=== PATIENT | female | born 1970 | race Caucasian/White ===

== ENCOUNTER 2017-07-13 12:24 | Inpatient (IN) | payer MEDICAID, OTHER ==
[~2017-07-13] VITALS: Ht 259.1 cm; Wt 44.9 kg
[~2017-07-13 12:24] MED LIST: CALC667C4 PO; FERR-63 PO; FURO40TA5 PO; Fluoxetine Hcl PO; LEVVL SUBCUT; LIP40 PO; OMEP20TA2 PO; SODI650T PO
[2017-07-13] MEDS ORDERED: ONDANSETRON HCL 4MG/2ML VIAL IV STA (14:32)
[2017-07-13] MEDS ORDERED: MORPHINE SULFATE 4 MG/ML CPJ (NOT FOR IM USE) IV STA (14:32)
[2017-07-13 15:05] LABS: BASOPHILS % 0.4 % (0.0-2.0); EOSINOPHILS % 0.1 % (0.0-5.0); HEMATOCRIT. 33.3 % (36.0-48.0); HEMOGLOBIN. 10.8 g/dL (12.0-16.0); LYMPHOCYTES % 7.3 % (20.0-50.0); MEAN CORPUSCULAR VOLUME 95.9 fL (81.0-99.0); MEAN PLATELET VOLUME 8.7 fl (7.4-10.4); NEUTROPHILS % 85.2 % (40.0-76.0); PLATELET 251 x1000/uL (130-400); RED BLOOD CELL COUNT 3.47 mill/uL (4.2-5.4)
[2017-07-13 15:12] LABS: INR 1.1; PARTIAL THROMBOPLASTIN TIME 31.6 sec (23.4-31.0); PROTHROMBIN TIME 11.4 sec (9.4-11.6)
[2017-07-13 15:21] LABS: CARBON DIOXIDE 21 mEq/L (21-32); CHLORIDE 102 mEq/L (98-107); TROPONIN I < 0.02 ng/mL (0.00-0.04)
[2017-07-13] MEDS ORDERED: LORAZEPAM 2MG/ML CPJ IV ONE (17:30)
[2017-07-13] MEDS ORDERED: HYDROCODONE/ACETAMINOPHEN 5/325MG TABLET PO PRN (18:15)
[2017-07-13] MEDS ORDERED: ACETAMINOPHEN 325MG TABLET PO PRN (18:15)
[2017-07-13] MEDS ORDERED: IPRATROPIUM/ALBUTEROL 0.5-3(2.5)MG/3ML NEB INH PRN (18:15)
[2017-07-13] MEDS ORDERED: CLONIDINE 0.1MG TABLET PO PRN (18:15)
[2017-07-13] MEDS ORDERED: ONDANSETRON HCL 4MG/2ML VIAL IV PRN (18:15)
[2017-07-13] MEDS ORDERED: MAGNESIUM/ALUMINUM HYDROXIDE/SIMETHICONE 30ML UDC PO PRN (18:15)
[2017-07-13] MEDS ORDERED: DOCUSATE SODIUM 100MG CAPSULE PO PRN (18:15)
[2017-07-13] MEDS ORDERED: SODIUM POLYSTYRENE SULFONATE 15 G/60 ML BOT PO NR (19:04)
[2017-07-13] MEDS ORDERED: DEXTROSE 50% WATER 50ML SYRINGE IV PRN ×2 (21:15→22:00)
[2017-07-13] MEDS: BLOOD SUGAR DIAGNOSTIC STRIP TEST SCH (21:20)
[2017-07-13] MEDS: MORPHINE SULFATE 4 MG/ML CPJ (NOT FOR IM USE) IV PRN (21:50)
[2017-07-13 23:37] LABS: CREATINE KINASE 52 IU/L (26-192); CREATINE KINASE MB FRACTION 2.2 ng/mL (0.5-3.6)
[2017-07-13 23:43] LABS: TROPONIN I < 0.02 ng/mL (0.00-0.04)
[2017-07-14] MEDS: MORPHINE SULFATE 4 MG/ML CPJ (NOT FOR IM USE) IV PRN ×3 (02:25→10:31)
[2017-07-14] MEDS: BLOOD SUGAR DIAGNOSTIC STRIP TEST SCH ×4 (06:06→21:34)
[2017-07-14] MEDS ORDERED: BLOOD SUGAR DIAGNOSTIC STRIP TEST SCH (07:40)
[2017-07-14 08:03] LABS: BASOPHILS % 0.6 % (0.0-2.0); EOSINOPHILS % 0.8 % (0.0-5.0); HEMATOCRIT. 31.2 % (36.0-48.0); HEMOGLOBIN. 10.1 g/dL (12.0-16.0); LYMPHOCYTES % 9.9 % (20.0-50.0); MEAN CORPUSCULAR HEMOGLOBIN 31.1 pg (28.0-32.0); MEAN CORPUSCULAR VOLUME 95.6 fL (81.0-99.0); MEAN PLATELET VOLUME 9.1 fl (7.4-10.4); MONOCYTES % 9.5 % (2.0-8.0); NEUTROPHILS % 79.2 % (40.0-76.0); PLATELET 264 x1000/uL (130-400); RED BLOOD CELL COUNT 3.27 mill/uL (4.2-5.4); RED CELL DISTRIBUTION WIDTH 15.3 % (11.6-14.6)
[2017-07-14] MEDS: INSULIN LISPRO 100 UNITS/ML SUBCUT SCH ×4 (08:26→21:00)
[2017-07-14 09:02] LABS: CREATINE KINASE 48 IU/L (26-192); CREATINE KINASE MB FRACTION 1.6 ng/mL (0.5-3.6); HDL CHOLESTEROL 43 mg/dL (40-59); LDL CHOLESTEROL 56 mg/dL (5-100); TROPONIN I < 0.02 ng/mL (0.00-0.04)
[2017-07-14] MEDS ORDERED: MORPHINE SULFATE 4 MG/ML CPJ (NOT FOR IM USE) IV PRN (14:49)
[2017-07-14] MEDS ORDERED: LISINOPRIL 2.5MG TABLET PO SCH (15:45)
[2017-07-14] MEDS ORDERED: CALCIUM ACETATE 667MG CAPSULE PO SCH (18:10)
[2017-07-14 20:48] VITALS: BP 139/79
[2017-07-14] MEDS ORDERED: CARVEDILOL 3.125 MG TABLET PO SCH (21:00)
[2017-07-14] MEDS ORDERED: ATORVASTATIN CALCIUM 40MG TABLET PO SCH (21:00)
[2017-07-15] MEDS ORDERED: OMEPRAZOLE 20MG CAPSULE EXTENDED RELEASE PO SCH (07:40)
[2017-07-15] MEDS ORDERED: FLUOXETINE HCL 20MG CAPSULE PO SCH (09:00)
[2017-07-15] MEDS ORDERED: FERROUS SULFATE 325MG TABLET PO SCH (09:00)
[2017-07-15] MEDS ORDERED: FUROSEMIDE 40MG TABLET PO SCH (09:00)
[2017-11-11] MEDS ORDERED: AMLO5TAB88 PO (13:03)
[2017-11-11] MEDS ORDERED: CITA10TA9 PO (13:03)
[2017-11-11] MEDS ORDERED: DOCU-138 PO (13:03)
[2017-11-11] MEDS ORDERED: HYOS0.122 PO (13:03)
[2017-11-11] MEDS ORDERED: FURO40TA5 PO (13:03)
[2017-11-12] MEDS ORDERED: NIFE60TA64 PO ×2 (20:20→20:21)
[2017-11-12] MEDS ORDERED: [UNRECOGNIZED DRUG - MIXTURE] PO (20:23)
[2017-11-12] MEDS ORDERED: DOCU100C21 PO (20:24)
[2017-11-12] MEDS ORDERED: CARV6.2548 PO (20:25)
== END 2017-07-14 23:08 | disposition short-term general hospital (02) | DRG 203 ==
LOC: ER 13:00 → 7WST 17:37 → EDBEDREQTM 17:38 → EDBEDREQ 17:38 → ENRESERV 18:13
PROVIDERS: ADMIT Internal Medicine; ATTEND Internal Medicine
DX: M94.0 Chondrocostal junction syndrome [Tietze] (principal); R64 Cachexia; I42.9 Cardiomyopathy, unspecified; N18.6 End stage renal disease; E46 Unspecified protein-calorie malnutrition; I13.11 Hypertensive heart and chronic kidney disease without heart failure, with stage 5 chronic kidney disease, or end stage renal disease; E11.22 Type 2 diabetes mellitus with diabetic chronic kidney disease; G20 Parkinson's disease; D63.1 Anemia in chronic kidney disease; E83.39 Other disorders of phosphorus metabolism; E11.319 Type 2 diabetes mellitus with unspecified diabetic retinopathy without macular edema; E78.5 Hyperlipidemia, unspecified; M21.961 Unspecified acquired deformity of right lower leg; F32.9 Major depressive disorder, single episode, unspecified; G89.4 Chronic pain syndrome; H54.42 Blindness, left eye, normal vision right eye; M21.371 Foot drop, right foot; R29.6 Repeated falls; R62.7 Adult failure to thrive; Z79.4 Long term (current) use of insulin; Z79.899 Other long term (current) drug therapy; Z95.810 Presence of automatic (implantable) cardiac defibrillator; Z99.2 Dependence on renal dialysis; Z68.1 Body mass index [BMI] 19.9 or less, adult
CPT/HCPCS: 36415; 71010; 80048; 80053; 80061; 82550; 82553; 82962; 83735; 84443; 84484; 85025; 85610; 85730; 87040; 93005; 93970; 96374; 96375; 99285; A6261; J1815; J2060; J2270; J2405

== ENCOUNTER 2017-09-09 20:31 | Inpatient (IN) | payer OTHER ==
[~2017-09-09] VITALS: Ht 157.5 cm; Wt 45.4 kg
[2017-09-09] MEDS ORDERED: MORPHINE SULFATE 4 MG/ML CPJ (NOT FOR IM USE) IV STA (20:49)
[2017-09-09] MEDS ORDERED: ASPIRIN 81MG TABLET PO STA (20:49)
[2017-09-09] MEDS ORDERED: ONDANSETRON HCL 4MG/2ML VIAL IV STA (20:49)
[2017-09-09] MEDS ORDERED: LORAZEPAM 2MG/ML CPJ IV ONE (21:00)
[2017-09-09 21:18] LABS: INR 1.2; PARTIAL THROMBOPLASTIN TIME 27.1 sec (23.4-31.0)
[2017-09-09 21:20] LABS: BASOPHILS % 0.6 % (0.0-2.0); EOSINOPHILS % 0.9 % (0.0-5.0); HEMATOCRIT. 31.8 % (36.0-48.0); HEMOGLOBIN. 10.5 g/dL (12.0-16.0); LYMPHOCYTES % 12.2 % (20.0-50.0); MEAN CORPUSCULAR HEMOGLOBIN 32.1 pg (28.0-32.0); MEAN PLATELET VOLUME 8.3 fl (7.4-10.4); MONOCYTES % 6.5 % (2.0-8.0); NEUTROPHILS % 79.8 % (40.0-76.0); PLATELET 199 x1000/uL (130-400); RED BLOOD CELL COUNT 3.28 mill/uL (4.2-5.4); RED CELL DISTRIBUTION WIDTH 17.1 % (11.6-14.6)
[2017-09-09 21:34] LABS: CARBON DIOXIDE 28 mEq/L (21-32); CHLORIDE 98 mEq/L (98-107); TROPONIN I < 0.02 ng/mL (0.00-0.04)
[2017-09-10 04:29] VITALS: BP 157/94
[2017-09-10] MEDS ORDERED: OMEPRAZOLE 20MG CAPSULE EXTENDED RELEASE PO SCH (07:20)
[2017-09-10] MEDS ORDERED: DEXTROSE 50% WATER 50ML SYRINGE IV PRN (08:00)
[2017-09-10 08:28] VITALS: BP 146/79
[2017-09-10] MEDS: CALCIUM ACETATE 667MG CAPSULE PO SCH ×2 (08:57→13:10)
[2017-09-10] MEDS: SODIUM BICARBONATE 650 MG TABLET PO SCH ×2 (08:58→13:09)
[2017-09-10] MEDS ORDERED: ATORVASTATIN CALCIUM 40MG TABLET PO SCH ×2 (09:00→21:00)
[2017-09-10] MEDS ORDERED: MEDICATION NOT ON FORMULARY EA (Omeprazole 20 MG) PO SCH (09:00)
[2017-09-10] MEDS ORDERED: CALCIUM ACETATE 667MG CAPSULE PO SCH (09:00)
[2017-09-10] MEDS ORDERED: FUROSEMIDE 40MG TABLET PO SCH (09:00)
[2017-09-10] MEDS: INSULIN LISPRO 100 UNITS/ML SUBCUT SCH ×2 (09:00→13:09)
[2017-09-10] MEDS ORDERED: FERROUS SULFATE 325MG TABLET PO SCH ×2 (09:00)
[2017-09-10] MEDS ORDERED: SODIUM BICARBONATE 650 MG TABLET PO SCH (09:00)
[2017-09-10] MEDS ORDERED: FLUOXETINE HCL 20MG CAPSULE PO SCH ×2 (09:00)
[2017-09-10] MEDS ORDERED: FLUOXETINE HCL PO SCH (09:00)
[2017-09-10 10:00] LABS: BASOPHILS % 0.7 % (0.0-2.0); EOSINOPHILS % 1.7 % (0.0-5.0); HEMATOCRIT. 32.9 % (36.0-48.0); HEMOGLOBIN. 10.9 g/dL (12.0-16.0); LYMPHOCYTES % 20.5 % (20.0-50.0); MEAN CORPUSCULAR HEMOGLOBIN 32.6 pg (28.0-32.0); MEAN CORPUSCULAR VOLUME 97.9 fL (81.0-99.0); MEAN PLATELET VOLUME 8.5 fl (7.4-10.4); MONOCYTES % 7.2 % (2.0-8.0); NEUTROPHILS % 69.9 % (40.0-76.0); PLATELET 180 x1000/uL (130-400); RED BLOOD CELL COUNT 3.36 mill/uL (4.2-5.4); RED CELL DISTRIBUTION WIDTH 17.6 % (11.6-14.6)
[2017-09-10] MEDS ORDERED: HYDROCODONE/ACETAMINOPHEN 5/325MG TABLET PO PRN (10:00)
[2017-09-10 10:23] LABS: CARBON DIOXIDE 25 mEq/L (21-32); CHLORIDE 99 mEq/L (98-107); CREATINE KINASE 48 IU/L (26-192); CREATINE KINASE MB FRACTION 1.6 ng/mL (0.5-3.6); HDL CHOLESTEROL 44 mg/dL (40-59); LDL CHOLESTEROL 45 mg/dL (5-100); TROPONIN I < 0.02 ng/mL (0.00-0.04)
[2017-09-10] MEDS ORDERED: MORPHINE SULFATE 2 MG/ML CPJ (NOT FOR IM USE) IV PRN (10:30)
[2017-09-10 12:00] VITALS: BP 148/81
[2017-09-10] MEDS ORDERED: BLOOD SUGAR DIAGNOSTIC STRIP TEST SCH (12:20)
[2017-09-10] MEDS ORDERED: POTASSIUM CHLORIDE 20MEQ TABLET SR PO SCH (12:30)
[2017-09-10 16:30] VITALS: BP 131/80
[2017-09-10] MEDS ORDERED: INSULIN DETEMIR UD 100 UNITS/ML SYR SUBCUT SCH ×2 (22:00)
== END 2017-09-10 17:50 | disposition short-term general hospital (02) | DRG 198 ==
LOC: ER 20:31 → EDBEDREQ 23:53 → ENRESERV 09-10 01:07 → 6WST 09-10 03:46
PROVIDERS: ADMIT Internal Medicine; ATTEND Internal Medicine
PROC: 5A1D70Z Performance of Urinary Filtration, Intermittent, Less than 6 Hours Per Day (ICD-10-PCS; principal; 2017-09-10)
DX: I24.9 Acute ischemic heart disease, unspecified (principal); E11.52 Type 2 diabetes mellitus with diabetic peripheral angiopathy with gangrene; N18.6 End stage renal disease; E46 Unspecified protein-calorie malnutrition; G20 Parkinson's disease; E11.21 Type 2 diabetes mellitus with diabetic nephropathy; S52.91XA Unspecified fracture of right forearm, initial encounter for closed fracture; D63.1 Anemia in chronic kidney disease; R07.89 Other chest pain; I13.11 Hypertensive heart and chronic kidney disease without heart failure, with stage 5 chronic kidney disease, or end stage renal disease; E11.22 Type 2 diabetes mellitus with diabetic chronic kidney disease; E11.319 Type 2 diabetes mellitus with unspecified diabetic retinopathy without macular edema; E78.5 Hyperlipidemia, unspecified; E83.39 Other disorders of phosphorus metabolism; E87.6 Hypokalemia; E87.70 Fluid overload, unspecified; F32.9 Major depressive disorder, single episode, unspecified; H54.62 Unqualified visual loss, left eye, normal vision right eye; G89.29 Other chronic pain; R29.6 Repeated falls; R62.7 Adult failure to thrive; Z79.4 Long term (current) use of insulin; Z79.899 Other long term (current) drug therapy; Z95.810 Presence of automatic (implantable) cardiac defibrillator; Z99.2 Dependence on renal dialysis; Z68.1 Body mass index [BMI] 19.9 or less, adult; Z89.431 Acquired absence of right foot
CPT/HCPCS: 36415; 71010; 73130; 80048; 80053; 80061; 82550; 82553; 82962; 83690; 83735; 84484; 85025; 85610; 85730; 93005; 96374; 96375; 99285; J1815; J2060; J2270; J2405

== ENCOUNTER 2017-09-16 07:12 | Inpatient (IN) | payer OTHER ==
[~2017-09-16] VITALS: Ht 182.9 cm; Wt 45.4 kg
[2017-09-16] MEDS ORDERED: MORPHINE SULFATE 4 MG/ML CPJ (NOT FOR IM USE) IV STA (07:29)
[2017-09-16] MEDS ORDERED: MORPHINE SULFATE 10 MG/ML CPJ IV NR (07:45)
[2017-09-16 07:47] LABS: BASOPHILS % 1.1 % (0.0-2.0); EOSINOPHILS % 0.7 % (0.0-5.0); HEMATOCRIT. 35.5 % (36.0-48.0); HEMOGLOBIN. 11.5 g/dL (12.0-16.0); LYMPHOCYTES % 22.3 % (20.0-50.0); MEAN CORPUSCULAR HEMOGLOBIN 32.1 pg (28.0-32.0); MEAN CORPUSCULAR VOLUME 98.9 fL (81.0-99.0); MEAN PLATELET VOLUME 9.6 fl (7.4-10.4); MONOCYTES % 9.1 % (2.0-8.0); NEUTROPHILS % 66.8 % (40.0-76.0); PLATELET 71 x1000/uL (130-400); RED BLOOD CELL COUNT 3.59 mill/uL (4.2-5.4); RED CELL DISTRIBUTION WIDTH 17.1 % (11.6-14.6)
[2017-09-16 07:51] LABS: CHLORIDE 102 mEq/L (98-107)
[2017-09-16 07:52] LABS: INR 1.2; PROTHROMBIN TIME 12.7 sec (9.4-11.6)
[2017-09-16 08:00] LABS: CARBON DIOXIDE 28 mEq/L (21-32)
[2017-09-16 08:02] LABS: TROPONIN I 0.04 ng/mL (0.00-0.04)
[2017-09-16 12:55] VITALS: BP 129/70
[2017-09-16] MEDS: MORPHINE SULFATE 10 MG/ML CPJ IV PRN ×2 (14:32→20:25)
[2017-09-16] MEDS ORDERED: DEXTROSE 50% WATER 50ML SYRINGE IV PRN (14:45)
[2017-09-16] MEDS ORDERED: SODIUM POLYSTYRENE SULFONATE 15 G/60 ML BOT PO NR (15:15)
[2017-09-16 15:28] LABS: CREATINE KINASE MB FRACTION 1.5 ng/mL (0.5-3.6)
[2017-09-16 16:00] VITALS: BP 122/71
[2017-09-16 16:35] LABS: EOSINOPHILS % 1.2 % (0.0-5.0); HEMATOCRIT. 33.1 % (36.0-48.0); HEMOGLOBIN. 10.9 g/dL (12.0-16.0); LYMPHOCYTES % 32.8 % (20.0-50.0); MEAN CORPUSCULAR HEMOGLOBIN 32.6 pg (28.0-32.0); MEAN CORPUSCULAR VOLUME 98.8 fL (81.0-99.0); MEAN PLATELET VOLUME 9.7 fl (7.4-10.4); MONOCYTES % 10.5 % (2.0-8.0); NEUTROPHILS % 54.5 % (40.0-76.0); PLATELET 66 x1000/uL (130-400); RED BLOOD CELL COUNT 3.35 mill/uL (4.2-5.4); RED CELL DISTRIBUTION WIDTH 16.8 % (11.6-14.6)
[2017-09-16] MEDS: NITROGLYCERIN OINT 1GM/INCH UDPKT TD SCH (17:36)
[2017-09-16] MEDS: FUROSEMIDE 40MG/4ML VIAL IVP SCH (17:37)
[2017-09-16] MEDS: FERROUS SULFATE 325MG TABLET PO SCH (17:37)
[2017-09-16] MEDS: INSULIN LISPRO 100 UNITS/ML SUBCUT SCH ×2 (17:40→20:06)
[2017-09-16] MEDS: BLOOD SUGAR DIAGNOSTIC STRIP TEST SCH ×2 (18:08→20:06)
[2017-09-16 20:00] VITALS: BP 135/88
[2017-09-16] MEDS: CARVEDILOL 3.125 MG TABLET PO SCH (20:22)
[2017-09-16] MEDS ORDERED: ATORVASTATIN CALCIUM 40MG TABLET PO SCH (21:00)
[2017-09-16] MEDS ORDERED: MIRTAZAPINE 15MG TABLET PO SCH (21:00)
[2017-09-17] VITALS (7 sets, daily range): BP systolic 119–160; BP diastolic 74–96
[2017-09-17 00:10] LABS: CREATINE KINASE MB FRACTION 1.2 ng/mL (0.5-3.6)
[2017-09-17] MEDS: NITROGLYCERIN OINT 1GM/INCH UDPKT TD SCH ×4 (00:15→17:24)
[2017-09-17] MEDS: MORPHINE SULFATE 10 MG/ML CPJ IV PRN ×3 (04:32→17:23)
[2017-09-17] MEDS: BLOOD SUGAR DIAGNOSTIC STRIP TEST SCH ×3 (06:56→17:21)
[2017-09-17] MEDS: INSULIN LISPRO 100 UNITS/ML SUBCUT SCH ×3 (06:56→17:21)
[2017-09-17 08:11] LABS: BASOPHILS % 1.1 % (0.0-2.0); EOSINOPHILS % 2.2 % (0.0-5.0); HEMATOCRIT. 32.3 % (36.0-48.0); HEMOGLOBIN. 10.8 g/dL (12.0-16.0); LYMPHOCYTES % 33.9 % (20.0-50.0); MEAN CORPUSCULAR HEMOGLOBIN 32.7 pg (28.0-32.0); MEAN CORPUSCULAR VOLUME 98.2 fL (81.0-99.0); MEAN PLATELET VOLUME 10.1 fl (7.4-10.4); MONOCYTES % 9.5 % (2.0-8.0); NEUTROPHILS % 53.3 % (40.0-76.0); PLATELET 74 x1000/uL (130-400); RED BLOOD CELL COUNT 3.29 mill/uL (4.2-5.4)
[2017-09-17] MEDS: FUROSEMIDE 40MG/4ML VIAL IVP SCH (08:15)
[2017-09-17] MEDS: CARVEDILOL 3.125 MG TABLET PO SCH (08:16)
[2017-09-17] MEDS: FERROUS SULFATE 325MG TABLET PO SCH ×3 (08:16→17:36)
[2017-09-17 08:18] LABS: CARBON DIOXIDE 26 mEq/L (21-32); CHLORIDE 104 mEq/L (98-107); CREATINE KINASE 27 IU/L (26-192); CREATINE KINASE MB FRACTION 1.1 ng/mL (0.5-3.6); HDL CHOLESTEROL 31 mg/dL (40-59); LDL CHOLESTEROL 45 mg/dL (5-100); TROPONIN I 0.03 ng/mL (0.00-0.04)
[2017-09-17] MEDS ORDERED: OMEPRAZOLE 20MG CAPSULE EXTENDED RELEASE PO SCH (09:00)
[2017-09-17] MEDS ORDERED: CITALOPRAM HYDROBROMIDE 10MG TABLET PO SCH (09:00)
[2017-09-17] MEDS ORDERED: CALCIUM ACETATE 667MG CAPSULE PO SCH (17:40)
[2017-09-17] MEDS ORDERED: SEVELAMER CARBONATE 800 MG TABLET PO SCH (17:40)
== END 2017-09-17 21:00 | disposition short-term general hospital (02) | DRG 194 ==
LOC: ER 07:18 → 8WST 09:23 → EDBEDREQ 09:25 → ENRESERV 10:49
PROVIDERS: ADMIT Internal Medicine; ATTEND Internal Medicine
PROC: 5A1D70Z Performance of Urinary Filtration, Intermittent, Less than 6 Hours Per Day (ICD-10-PCS; principal; 2017-09-17)
DX: I13.2 Hypertensive heart and chronic kidney disease with heart failure and with stage 5 chronic kidney disease, or end stage renal disease (principal); E43 Unspecified severe protein-calorie malnutrition; D61.818 Other pancytopenia; N18.6 End stage renal disease; I42.9 Cardiomyopathy, unspecified; E11.22 Type 2 diabetes mellitus with diabetic chronic kidney disease; D69.6 Thrombocytopenia, unspecified; I25.10 Atherosclerotic heart disease of native coronary artery without angina pectoris; I50.23 Acute on chronic systolic (congestive) heart failure; E11.51 Type 2 diabetes mellitus with diabetic peripheral angiopathy without gangrene; G20 Parkinson's disease; E83.39 Other disorders of phosphorus metabolism; E87.5 Hyperkalemia; F41.9 Anxiety disorder, unspecified; F32.9 Major depressive disorder, single episode, unspecified; K21.9 Gastro-esophageal reflux disease without esophagitis; D63.8 Anemia in other chronic diseases classified elsewhere; E11.319 Type 2 diabetes mellitus with unspecified diabetic retinopathy without macular edema; E78.00 Pure hypercholesterolemia, unspecified; E78.5 Hyperlipidemia, unspecified; H54.62 Unqualified visual loss, left eye, normal vision right eye; L89.90 Pressure ulcer of unspecified site, unspecified stage; G89.29 Other chronic pain; Z79.4 Long term (current) use of insulin; Z89.431 Acquired absence of right foot; Z91.81 History of falling; Z95.810 Presence of automatic (implantable) cardiac defibrillator; Z99.2 Dependence on renal dialysis; Z79.899 Other long term (current) drug therapy; Z68.1 Body mass index [BMI] 19.9 or less, adult
CPT/HCPCS: 36415; 71010; 80048; 80053; 80061; 82550; 82553; 82962; 83735; 83880; 84484; 85025; 85379; 85610; 93005; 93306; 93970; 96374; 99285; J1940; J2270